=== PATIENT | male | born 1995 | race Caucasian/White ===

== ENCOUNTER 2022-12-15 09:27 | Emergency (ER) | payer SELFPAY ==
[2022-12-15] MEDS ORDERED: GABAPENTIN 300 MG CAP ONE (10:09)
[2022-12-15] MEDS ORDERED: KETOROLAC 30 MG/ML INJ ONE (10:09)
[2022-12-15] MEDS ORDERED: dexAMETHasone 10 MG/ML VIAL ONE (10:09)
--- NOTE | 2022-12-15 10:42 | RAD REPORT ---
EXAM DESCRIPTION: CT - Thoracic Spine W/o Cont - 12/15/2022 10:08 am CLINICAL HISTORY: Radiculopathy. back pain, after lifting COMPARISON: No comparisons TECHNIQUE: Axial CT imaging through the thoracic spine was performed with coronal and sagittal re-fo rmatted images. All CT scans are performed using dose optimization technique as appropriate and may include automated exposure control or mA/KV adjustment according to patient size. FINDINGS: Vertebral body heights and disc spaces are maintained. A compression fracture is not prese nt. There is evidence of a moderate posterior disc bulge at T11-12 resulting in rapk-ow-wgsygnti cent ral canal stenosis. Thoracic spine alignment is within normal limits. No paraspinal masses or hematoma. IMPRESSION: Posterior disc bulge at T11-12 results in moderate central canal narrowing.
--- NOTE | 2022-12-15 10:46 | RAD REPORT ---
EXAM DESCRIPTION: CT - Spine Lumbar Wo Con - 12/15/2022 10:09 am CLINICAL HISTORY: Radiculopathy. PAIN COMPARISON: No comparisons TECHNIQUE: Axial noncontrast CT imaging of the lumbar spine was performed with coronal and sagittal re-formatted images. All CT scans are performed using dose optimization technique as appropriate and may include automated exposure control or mA/KV adjustment according to patient size. FINDINGS: No acute lumbar spine fracture seen. No aggressive marrow pattern or malalignment. Paraspinal tissues are normal in thickness. No paraspinal abscess or hematoma seen. Mild posterior disc bulging lower lumbar levels. No significant canal stenosis grossly appreciated. IMPRESSION: No acute lumbar spine abnormality seen. Mild disc bulges suspected lower lumbar levels. Full assessment on CT is inherently limited, however, no gross evidence of a high-grade canal or foraminal stenosis seen.
--- NOTE | 2022-12-15 11:02 | ER ---
Nurse's Notes [facility] Name: Mohit Campbell Age: 27 yrs Sex: Male : 1995 Arrival Date: 12/15/2022 Time: 09:27 Bed 12 Private MD: Diagnosis: Muscle spasm of back;Other intervertebral disc disorders, lumbar region-and thoracic region Presentation: 12/15 09:43 Chief complaint: Patient states: Low back pain, left side that radiates to buttock, nj1 started 2-3 days ago. Works at [employer]. Ebola Screen: Patient denies travel to an Ebola-affected area in the 21 days before illness onset. Initial Sepsis Screen: Does the patient meet any 2 criteria? No. Patient's initial sepsis screen is negative. Does the patient have a suspected source of infection? No. Patient's initial sepsis screen is negative. Risk Assessment: Do you want to hurt yourself or someone else? Patient reports no desire to harm self or others. Onset of symptoms was November 2022. 09:43 Method Of Arrival: Ambulatory [facility] 09:43 Acuity: EVELIN 3 [facility] 09:43 Coronavirus screen: Vaccine status: Patient reports being unvaccinated. [facility] Triage Assessment: 10:03 General: Appears in no apparent distress. uncomfortable, Behavior is calm, cooperative, nj appropriate for age. Pain: Complains of pain in back Pain radiates to buttocks Pain currently is 3 out of 10 on a pain scale. Neuro: No deficits noted. Cardiovascular: No deficits noted. Respiratory: No deficits noted. Musculoskeletal: Reports pain in back. Historical: - Allergies: 09:50 No Known Allergies; nj1 - PMHx: 09:50 None; nj1 - Immunization history:: Client reports having NOT received the Covid vaccine. - Social history:: Smoking status: Reported history of juuling and/or vaping. - Family history:: not pertinent. - Hospitalizations: : No recent hospitalization is reported. Vital Signs: 09:43 BP 135 / 102; Pulse 80; Resp 18; Temp 98.3(O); Pulse Ox 99% on R/A; Weight 81.65 kg; nj1 Height 5 ft. 5 in. ; Pain 3/10; 09:43 Body Mass Index 29.95 (81.65 kg, 165.1 cm) nj1 09:43 Pain Scale: Adult nj1 ED Course: 09:29 Patient arrived in ED. rg4 09:30 Garrett Marcum MD is Attending Physician. rn 09:45 Triage completed. nj1 09:47 Arm band placed on right wrist. nj1 10:00 Notified ED physician of other Pt refusing IV access and IM injections. nj1 10:07 CT Lumbar Spine Wo Con In Process Unspecified. EDMS 10:07 CT Thoracic Spine Wo Cont In Process Unspecified. EDMS 11:47 Patient has correct armband on for positive identification. jl7 11:47 No provider procedures requiring assistance completed. Patient did not have IV access jl7 during this emergency room visit. Administered Medications: 10:00 Drug: Gabapentin PO 300 mg PO once Route: PO; nj1 11:47 Follow up: Response: No adverse reaction jl7 11:08 Not Given (Patient Refused): [id number] mg IVP once nj1 11:08 Not Given (Patient Refused): Decadron - [id number] mg IVP once nj1 Medication: 11:47 VIS not applicable for this client. jl7 Outcome: 11:01 Discharge ordered by . rn 11:47 Discharged to home ambulatory, jl7 11:47 Condition: stable 11:47 Discharge instructions given to patient, Instructed on discharge instructions, follow up and referral plans. medication usage, Demonstrated understanding of instructions, follow-up care, medications, Prescriptions given X 3, 11:48 Patient left the ED. jl7 Signatures: Dispatcher [employer] [facility] Garrett Marcum MD MD rn Garcia, Rubi rg4 Bhupinder Winkler RN RN jl7 Dayanna Rincon RN RN nj1 Corrections: (The following items were deleted from the chart) 09:50 09:43 Pulse 80bpm; Resp 18bpm; Pulse Ox 99% RA; nj1 nj1
--- NOTE | 2022-12-15 11:02 | EDPHYS ---
Physician Documentation [facility] Name: Mohit Campbell Age: 27 yrs Sex: Male : 1995 Arrival Date: 12/15/2022 Time: 09:27 Bed 12 Private MD: ED Physician Garrett Marcum HPI: 12/15 09:55 This 27 yrs old Male presents to ER via Ambulatory with complaints of Back Pain. rn 10:18 The patient presents with pain that is acute. The symptoms are located in the low back, rn thoracic area and lumbar area. Onset: The symptoms/episode began/occurred 3 day(s) ago. The pain radiates to the buttocks. Associated signs and symptoms: Pertinent negatives: abdominal pain, chest pain, dysuria, fever. 10:57 Modifying factors: The patient symptoms are alleviated by remaining still, rest, rn specific position, the patient symptoms are aggravated by any movement. Severity of symptoms: At their worst the symptoms were moderate, in the emergency department the symptoms are unchanged. The patient has not experienced similar symptoms in the past. 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 No direct trauma or fall. No car accident. No weakness or numbness.. Historical: - Allergies: 09:50 No Known Allergies; nj1 - PMHx: 09:50 None; nj1 - Immunization history:: Client reports having NOT received the Covid vaccine. - Social history:: Smoking status: Reported history of juuling and/or vaping. - Family history:: not pertinent. - Hospitalizations: : No recent hospitalization is reported. ROS: 10:57 Constitutional: Negative for fever, chills, and weight loss, Cardiovascular: Negative rn for chest pain, palpitations, and edema, Respiratory: Negative for shortness of breath, cough, wheezing, and pleuritic chest pain, Abdomen/GI: Negative for abdominal pain, nausea, vomiting, diarrhea, and constipation, Back: Positive for mid and lower back pain MS/Extremity: Negative for injury and deformity, Skin: Negative for injury, rash, and discoloration, Neuro: Negative for headache, weakness, numbness, tingling, and seizure, Exam: 10:57 Constitutional: This is a well developed, well nourished patient who is awake, alert, rn appears uncomfortable but ambulatory and is able to stand up and recreate movements that he believes started the pain Head/Face: Normocephalic, atraumatic. Cardiovascular: Regular rate and rhythm. No pulse deficits. Respiratory: No increased work of breathing, no retractions or nasal flaring. Abdomen/GI: Soft, non-tender Back: Lower thoracic and upper lumbar paraspinal tenderness. No CVA tenderness MS/ Extremity: Pulses equal, no cyanosis. Neurovascular intact. Full, normal range of motion. Equal circumference. Neuro: Awake and alert, GCS 15, oriented to person, place, time, and situation. Cranial nerves II-XII grossly intact. Motor strength 5/5 in all extremities. Sensory grossly intact. Cerebellar exam normal. Normal gait. Vital Signs: 09:43 BP 135 / 102; Pulse 80; Resp 18; Temp 98.3(O); Pulse Ox 99% on R/A; Weight 81.65 kg; nj1 Height 5 ft. 5 in. ; Pain 3; 09:43 Body Mass Index 29.95 (81.65 kg, 165.1 cm) nj 09:43 Pain Scale: Adult nj1 MDM: 09:30 Patient medically screened. rn 10:59 Differential diagnosis: arthritis, Fatigue Fracture Osteoarthritis ruptured disc, rn spinal injury, sprain. Data reviewed: vital signs, nurses notes, radiologic studies, CT scan, and as a result, I will discharge patient. Counseling: I had a detailed discussion with the patient and/or guardian regarding the historical points, exam findings, and any diagnostic results supporting the discharge/admit diagnosis, radiology results, the need for outpatient follow up, to return to the emergency department if symptoms worsen or persist or if there are any questions or concerns that arise at home. Special discussion: I discussed with the patient/guardian in detail that at this point there is no indication for admission to the hospital. It is understood, however, that if the symptoms persist or worsen the patient needs to return immediately for re-evaluation. Based on the history and exam findings, there is no indication for further emergent testing or inpatient evaluation. I discussed with the patient/guardian the need to see the back specialist for further evaluation of the symptoms. I discussed with the patient/guardian the need to see the primary care provider for further evaluation of the symptoms. 12/15 09:51 Order name: CT Lumbar Spine Wo Con; Complete Time: 10:49 rn 12/15 09:51 Order name: CT Thoracic Spine Wo Cont; Complete Time: 10:49 rn Administered Medications: 10:00 Drug: Gabapentin PO 300 mg PO once Route: PO; nj1 11:47 Follow up: Response: No adverse reaction jl7 11:08 Not Given (Patient Refused): [id number] mg IVP once nj1 11:08 Not Given (Patient Refused): Decadron - [id number] mg IVP once nj1 Disposition Summary: 12/15/22 11:01 Discharge Ordered Notes: Location: Home rn Problem: new rn Symptoms: have improved rn Condition: Stable rn Diagnosis - Muscle spasm of back rn - Other intervertebral disc disorders, lumbar region - and thoracic region rn Followup: rn - With: Private Physician - When: As needed - Reason: Recheck today's complaints, Re-evaluation by your physician Discharge Instructions: - Discharge Summary Sheet rn - Back Injury Prevention, Wkiz-ax-Auan rn - Muscle Cramps and Spasms, Tjtq-rl-[id number] rn - Back Exercises rn Forms: - Medication Reconciliation Form rn - Thank You Letter rn - Antibiotic thresher broomcorn - Prescription Opioid Use rn - Patient Portal Instructions rn - Leadership Thank You Letter rn - Work release form jl7 Prescriptions: - gabapentin 100 mg Oral capsule - take 1 capsule ORAL route every 12 hours; 14 capsule; Refills: 0, Product rn Selection Permitted - Cyclobenzaprine 10 mg Oral tablet - take 1 tablet ORAL route every 8 to 12 hours As needed; 12 tablet; Refills: 0, rn Product Selection Permitted - Medrol (Randall) 4 mg Oral Tablets, Dose Pack - take 1 tablet ORAL route as directed - follow package instructions; 1 packet; rn Refills: 0, Product Selection Permitted Signatures: Dispatcher [employer] Garrett Gil MD MD rn Jaco, Norma, RN RN nj1 Bhupinder Winkler RN jl7 Corrections: (The following items were deleted from the chart) 11: 09:51 IV Saline Lock ordered. rn nj1
[2022-12-15 11:55] VITALS: BP 135/102; TEMP 98.3; O2SAT 99
== END 2022-12-15 11:48 | disposition home or self-care (01) ==
LOC: ER 09:27
DX: M62.830 Muscle spasm of back (principal); M51.85 Other intervertebral disc disorders, thoracolumbar region
CPT/HCPCS: 72128; 72131; 99283; J1100

== ENCOUNTER 2024-06-19 23:15 | Emergency (ER) | payer BC, SELFPAY ==
[2024-06-20 00:21] LABS: Specific Gravity > 1.030 (1.005-1.030); Sqamous Epithelial None Seen /HPF (None Seen); Urine Bacteria None Seen /HPF (<20); Urine Bilirubin NEGATIVE (Negative); Urine Blood Negative (Negative); Urine Clarity Clear (Clear); Urine Color Light-Yellow (Yellow); Urine Culture Reflex Order NOT NEEDED; Urine Glucose NEGATIVE (Negative); Urine Ketones NEGATIVE (Negative); Urine Microscopic Reflex YN ORDER UMIC; Urine Mucus Slight /HPF (None Seen); Urine Nitrite NEGATIVE (Negative); Urine Protein TRACE (Negative); Urine RBC None Seen /HPF (None Seen); Urine Urobilinogen Normal (Normal); Urine WBC <5 /HPF (<5); Urine pH 6.5 (5.0-7.0)
--- NOTE | 2024-06-20 03:14 | EDPHYS ---
Physician Documentation [facility] Name: Mohit Campbell Age: 29 yrs Sex: Male : 1995 Arrival Date: 06/19/2024 Time: 23:15 Bed 18 Private MD: ED Physician Justin Valdez HPI: 06/19 23:41 This 29 yrs old Male presents to ER via Unassigned with complaints of Flank Pain. kb 23:42 Pt is a 29 year old male who presents for RLQ abd pain that started today after falling kb at work. States he missed a step, fell and hit his abd on the steps. Denies any other pain or injury. States he was concerned that something was wrong on the inside so he came in for evaluation. . Historical: - Allergies: 06/20 00:02 No Known Allergies; br2 - PMHx: 00:02 Hypertensive disorder; br2 - Immunization history:: Adult Immunizations up to date. - Infectious Disease History:: Denies. - Social history:: Smoking status: Reported history of juuling and/or vaping. Patient/guardian denies using alcohol, street drugs. ROS: 06/19 23:41 Constitutional: As per HPI kb Exam: 23:41 Constitutional: This is a well developed, well nourished patient who is awake, alert, kb and in no acute distress. Head/Face: Normocephalic, atraumatic. ENT: Moist Mucous membranes Cardiovascular: Regular rate Respiratory: Respirations even and unlabored. No increased work of breathing. Talking in full sentences Back: No spinal tenderness. No costovertebral tenderness. Full range of motion. Skin: Warm, dry with normal turgor. Normal color. MS/ Extremity: Pulses equal, no cyanosis. Neurovascular intact. Full, normal range of motion. Neuro: Awake and alert, GCS 15, oriented to person, place, time, and situation. 23:41 Abdomen/GI: Inspection: contusion and abrasion to RLQ, Bowel sounds: normal, Palpation: mild abdominal tenderness, moderate abdominal tenderness, in the right lower quadrant, Vital Signs: 06/20 00:00 BP 140 / 95; Pulse 88; Resp 18; Temp 97.7; Pulse Ox 98% on R/A; Weight 90.72 kg; Height br2 5 ft. 9 in. ; Pain 5/10; 03:18 BP 137 / 79; Pulse 84; Resp 18; Pulse Ox 99% ; cp4 00:00 Body Mass Index 29.53 (90.72 kg, 175.26 cm) br2 00:00 Pain Scale: Adult br2 MDM: 06/19 23:27 Medical Screening Exam initiated kb 23:43 Differential diagnosis: contusion, intraabdominal injury. Data reviewed: vital signs, kb nurses notes. 06/20 01:49 Transition of care: After a detail discussion of the patient's case, care is kb transferred to Justin Valdez MD. 03:07 ED course: EXAM DESCRIPTION: CTABDOMEN PELVIS WITHOUT IV CONTRAST 06/20/2024 2:54 AM CDT sp4 CLINICAL HISTORY: 29 years, Male, Abdominal pain. COMPARISON: None. PROCEDURE: Noncontrast images of the abdomen and pelvis were performed from the lung bases to the ischial tuberosities. In addition multiplanar reformats in the coronal and sagittal plane were obtained and reviewed. An individualized dose optimization technique, Automated Exposure Control, was utilized for the performed procedure. FINDINGS: The lack of IV contrast limits evaluation of solid organs, subtle lesions cannot be excluded. Lung bases: The lung bases demonstrate to be clear. Liver: Grossly the unopacified liver demonstrates to be normal, no focal lesions are identified. Gallbladder: The gallbladder is partially contracted most likely related to lack of fasting. No significant filling defects in/or abnormality is identified. Adrenal glands: Grossly the unopacified adrenal glands demonstrate to be normal. Pancreas: Grossly the unopacified pancreas demonstrate to be normal Spleen: The spleen demonstrate to be normal. Kidneys: Grossly the unopacified kidneys demonstrate to be within normal limits. There is no evidence for nephrolithiasis and/or hydronephrosis. GI: Grossly the unopacified stomach, small bowel and large bowel demonstrate to be within normal limits. No evidence for bowel dilatation and/or free air. The appendix is normal. The left-sided colon demonstrate to be decompressed with no gross abnormalities. : The urinary bladder demonstrate to be suboptimal distention with no gross abnormalities. Genitalia: The prostate gland is normal. Abdominal aorta: The aorta demonstrate demonstrate to be within normal limits. Retroperitoneum:There is no retroperitoneal lymphadenopathy. There is no evidence for ascites and/or abnormal fluid collections. Bones: The bony structures demonstrate to be within normal limits. No evidence for compression deformity and/or significant skeletal lesions. Soft tissues: There is a small left inguinal hernia containing omentum. IMPRESSION: No evidence for nephrolithiasis and/or hydronephrosis. Small left inguinal hernia containing omentum. Electronically signed by: Lincoln Vigil MD 06/20/2024 03:02 A. 06/19 23:31 Order name: Urinalysis w/ reflexes; Complete Time: 00:22 kb 06/19 23:31 Order name: CT Abd/Pelvis - Without Contrast kb Administered Medications: No medications were administered Disposition: 03:13 Co-signature as Attending Physician, Justin Valdez MD I agree with the assessment sp4 and plan of care. I reviewed the patient's care provided by Advanced Practice Provider \T\ agree w/ the diagnosis \T\ care plan. I personally saw the pt \T\ performed a substantive portion of the visit, incldng all aspects of the (History/Exam/Medical Decision Making). Disposition Summary: 06/20/24 03:13 Discharge Ordered Condition: Stable sp4 Diagnosis - Contusion of abdominal wall sp4 - Left inguinal hernia sp4 Followup: sp4 - With: Winston Coleman MD - When: 10 - 14 days - Reason: Recheck today's complaints Discharge Instructions: - Discharge Summary Sheet kb - Inguinal Hernia, Adult, Umzn-pl-Yong sp4 - Form - Return To Work vk Forms: - Patient Portal Instructions sp4 - Work release form vk Signatures: Dispatcher [employer] Romi Bradford, CLEANER-C CLEANER-Justin Laguna MD MD sp4 Jocelyn Fan RN RN br2
--- NOTE | 2024-06-20 03:14 | ER ---
[facility] Name: Mohit Campbell Age: 29 yrs Sex: Male : 1995 Arrival Date: 06/19/2024 Time: 23:15 Bed 18 Private MD: Diagnosis: Contusion of abdominal wall;Left inguinal hernia Presentation: 06/20 00:00 Chief complaint: Patient states: S/P FALL...C/O OF RLQ PAIN...BRUISE/EDEMA TO AREA. br2 Coronavirus screen: Client denies travel out of the [place] in the last 14 days. Ebola Screen: Patient denies exposure to infectious person. Initial Sepsis Screen: Does the patient meet any 2 criteria? No. Patient's initial sepsis screen is negative. Does the patient have a suspected source of infection? No. Patient's initial sepsis screen is negative. 00:00 Method Of Arrival: Ambulatory br2 03:19 Acuity: EVELIN 3 cp4 03:19 Risk Assessment: Do you want to hurt yourself or someone else? Patient reports no cp4 desire to harm self or others. Onset of symptoms was June 19, 2024. Triage Assessment: 00:02 General: Appears uncomfortable, Behavior is calm, cooperative. Pain: Complains of pain br2 in right lower quadrant Pain currently is 5 out of 10 on a pain scale. Historical: - Allergies: 00:02 No Known Allergies; br2 - PMHx: 00:02 Hypertensive disorder; br2 - Immunization history:: Adult Immunizations up to date. - Infectious Disease History:: Denies. - Social history:: Smoking status: Reported history of juuling and/or vaping. Patient/guardian denies using alcohol, street drugs. Screenin:[address] [facility] ED Fall Risk Assessment (Adult) History of falling in the last 3 months, cp4 including since admission No falls in past 3 months (0 pts) Confusion or Disorientation No (0 pts) Intoxicated or Sedated No (0 pts) Impaired Gait No (0 pts) Mobility Assist Device Used No (0 pt) Altered Elimination No (0 pt) Score/Fall Risk Level 0 - 2 = Low Risk Oriented to surroundings, Maintained a safe environment, Assessed \T\ reinforced patient's understanding of fall precautions, Hourly rounding (assess needs \T\ fall precautionary measures) done. Abuse screen: Denies threats or abuse. Denies injuries from another. Nutritional screening: No deficits noted. Tuberculosis screening: No symptoms or risk factors identified. Assessment: 01:17 General: Appears in no apparent distress. comfortable, Behavior is calm, cooperative, cp4 appropriate for age. Pain: Complains of pain in abdomen and right lower quadrant Pain does not radiate. Pain currently is 5 out of 10 on a pain scale. Neuro: Level of Consciousness is awake, alert, obeys commands, Oriented to person, place, time, situation. Cardiovascular: Patient's skin is warm and dry. Respiratory: Airway is patent Respiratory effort is even, unlabored. GI: No signs and/or symptoms were reported involving the gastrointestinal system. : Reports pain in right flank(s), lower quadrant(s). EENT: No signs and/or symptoms were reported regarding the EENT system. Derm: No signs and/or symptoms reported regarding the dermatologic system. Musculoskeletal: No signs and/or symptoms reported regarding the musculoskeletal system. Vital Signs: 00:00 BP 140 / 95; Pulse 88; Resp 18; Temp 97.7; Pulse Ox 98% on R/A; Weight 90.72 kg; Height br2 5 ft. 9 in. ; Pain 5/10; 03:18 BP 137 / 79; Pulse 84; Resp 18; Pulse Ox 99% ; cp4 00:00 Body Mass Index 29.53 (90.72 kg, 175.26 cm) br2 00:00 Pain Scale: Adult br2 ED Course: 06/19 23:20 Patient arrived in ED. gm2 23:27 [facility] Eckert [facility]C [facility] kb 23:27 Justin Valdez MD is Attending Physician. kb 23:41 Urinalysis w/ reflexes Sent. rk3 23:47 Lorna Crow is Primary Nurse. cp4 23:51 CT Abd/Pelvis - Without Contrast In Process Unspecified. EDMS 06/20 01:18 No provider procedures requiring assistance completed. Patient did not have IV access cp4 during this emergency room visit. 01:18 Bed in low position. Call light in reach. Side rails up X 1. cp4 03:14 Winston Coleman MD is Referral Physician. sp4 03:18 Provided Education on: inguinal hernia. cp4 03:19 Triage completed. cp4 03:19 Arm band placed on left wrist. Patient placed in waiting room. cp4 Administered Medications: No medications were administered Medication: 01:18 VIS not applicable for this client. cp4 Outcome: 03:13 Discharge ordered by . sp4 03:18 Discharged to home ambulatory, cp4 03:18 Condition: stable 03:18 Discharge instructions given to patient, family, Instructed on discharge instructions, follow up and referral plans. Demonstrated understanding of instructions, follow-up care, 03:19 Patient left the ED. cp4 Signatures: Dispatcher [employer] EDMS Romi Eckert, DIRECTOR OF FIRST IMPRESSIONSRaoC DIRECTOR OF FIRST IMPRESSIONS-Justin Laguna MD MD sp4 Lorna Crow cp4 Laverne Santoro gm2 Jocelyn Fan RN RN br2 Corey Watkins rk3
--- NOTE | 2024-06-20 03:20 | RAD REPORT ---
EXAM DESCRIPTION: CT ABDOMEN PELVIS WITHOUT IV CONTRAST 06/20/2024 2:54 AM CDT CLINICAL HISTORY: 29 years, Male, Abdominal pain. COMPARISON: None. PROCEDURE: Noncontrast images of the abdomen and pelvis were performed from the lung bases to the ischial tubero sities. In addition multiplanar reformats in the coronal and sagittal plane were obtained and reviewed. An individualized dose optimization technique, Automated Exposure Control, was utilized for the perfo rmed procedure. FINDINGS: The lack of IV contrast limits evaluation of solid organs, subtle lesions cannot be exclude d. Lung bases: The lung bases demonstrate to be clear. Liver: Grossly the unopacified liver demonstrates to be normal, no focal lesions are identified. Gallbladder: The gallbladder is partially contracted most likely related to lack of fasting. No signi ficant filling defects in/or abnormality is identified. Adrenal glands: Grossly the unopacified adrenal glands demonstrate to be normal. Pancreas: Grossly the unopacified pancreas demonstrate to be normal Spleen: The spleen demonstrate to be normal. Kidneys: Grossly the unopacified kidneys demonstrate to be within normal limits. There is no eviden ce for nephrolithiasis and/or hydronephrosis. GI: Grossly the unopacified stomach, small bowel and large bowel demonstrate to be within normal limi ts. No evidence for bowel dilatation and/or free air. The appendix is normal. The left-sided colon demonstrate to be decompressed with no gross abnormalities. : The urinary bladder demonstrate to be suboptimal distention with no gross abnormalities. Genitalia: The prostate gland is normal. Abdominal aorta: The aorta demonstrate demonstrate to be within normal limits. Retroperitoneum: There is no retroperitoneal lymphadenopathy. There is no evidence for ascites and/or abnormal fluid collections. Bones: The bony structures demonstrate to be within normal limits. No evidence for compression deform ity and/or significant skeletal lesions. Soft tissues: There is a small left inguinal hernia containing omentum. IMPRESSION: No evidence for nephrolithiasis and/or hydronephrosis. Small left inguinal hernia containing omentum. Electronically signed by: Lincoln Vigil MD 06/20/2024 03:02 AM CDT Due to temporary technical issues with the [employer]ACS/[employer] reporting system, reports are being rocio d by the in-house radiologist without review as a courtesy to ensure prompt reporting the interpreting radiologist is fully responsible for the content of the report. Transcribed Date/Time: 06/20/2024 3:19 AM
[2024-06-20 03:34] VITALS: BP 137/79; TEMP 97.7; O2SAT 99
== END 2024-06-20 03:19 | disposition home or self-care (01) ==
LOC: ER 23:15
DX: S30.1XXA Contusion of abdominal wall, initial encounter (principal); K40.90 Unilateral inguinal hernia, without obstruction or gangrene, not specified as recurrent
CPT/HCPCS: 74176; 81001; 99283